=== PATIENT | female | born 1995 | race African-American/Black ===

== ENCOUNTER 2022-03-15 10:25 | Emergency (ER) | payer MEDICAID, OTHER, SELFPAY ==
[~2022-03-15] VITALS: Ht 172.7 cm; Wt 90.9 kg
[2022-03-15 11:17] LABS: BASO % 0.3 % (0.0-1.0); EOS # 0.1 10^3/uL (0.0-0.5); EOS % 1.5 % (0.0-3.0); HEMATOCRIT 33.5 % (36.0-47.0); HEMOGLOBIN 11.4 g/dl (12.0-15.5); LYMPH % 21.7 % (24.0-44.0); MEAN CORPUSCULAR HEMOGLOBIN 29.7 pg (27.0-33.0); MEAN CORPUSCULAR VOLUME 87.2 fl (80.0-96.0); MONO # 0.5 10^3/uL (0.0-0.8); MONO % 5.1 % (2.0-8.0); NEUTROPHILS # 6.4 10^3/uL (1.5-8.5); NEUTROPHILS % 70.5 % (36.0-66.0); PLATELET COUNT, AUTOMATED 268 10^3/uL (150-450); RED BLOOD COUNT 3.84 10^6/uL (4.00-5.40); WHITE BLOOD COUNT 9.1 10^3/uL (4.0-10.0)
[2022-03-15 11:36] LABS: APPEARANCE, URINE CLOUDY (CLEAR); BACTERIA, URINE AUTO 2+ (NEGATIVE); BILIRUBIN, URINE AUTO NEGATIVE (NEGATIVE); BLOOD, URINE BLOOD NEGATIVE (NEGATIVE); COLOR, URINE YELLOW (YELLOW); GLUCOSE, URINE (UA) AUTO 1+ mg/dL (NEGATIVE); KETONE, URINE AUTO NEGATIVE (NEGATIVE); LEUKOCYTE ESTERASE, URINE AUTO 3+ (NEGATIVE); MUCUS, URINE SMALL (NEGATIVE); NITRITE, URINE AUTO NEGATIVE (NEGATIVE); PROTEIN, URINE AUTO NEGATIVE (NEGATIVE); RBC, URINE AUTO 18 /HPF (0-3); SPECIFIC GRAVITY URINE AUTO 1.012 (1.002-1.035); SQUAMOUS EPITHELIAL CELL UR AU 19 /HPF (0-6); TRANSITIONAL EPITHELIAL AUTO <1 /HPF; UROBILINOGEN, URINE AUTO 0.2 mg/dL (0.0-2.0); WBC, URINE AUTO 16 /HPF (0-3)
[2022-03-15 11:56] LABS: ALBUMIN 2.7 GM/DL (3.2-5.2); ALT/SGPT 20 U/L (12-78); BILIRUBIN,DIRECT < 0.1 MG/DL (0.0-0.2); BILIRUBIN,TOTAL 0.3 MG/DL (0.2-1.0); BLOOD UREA NITROGEN 6 MG/DL (7-18); CALCIUM LEVEL 8.6 MG/DL (8.5-10.1); CARBON DIOXIDE LEVEL 24 MEQ/L (21-32); CHLORIDE LEVEL 108 MEQ/L (98-107); CREATININE FOR GFR 0.68 MG/DL (0.55-1.30); GLOMERULAR FILTRATION RATE > 60.0 (>60); GLUCOSE, FASTING 93 MG/DL (70-100); MAGNESIUM LEVEL 1.6 MG/DL (1.8-2.4); POTASSIUM SERUM 3.8 MEQ/L (3.5-5.1); SODIUM LEVEL 139 MEQ/L (136-145); TOTAL PROTEIN 6.7 GM/DL (6.4-8.2); URIC ACID 3.3 MG/DL (2.6-6.0)
[2022-03-15] MEDS ORDERED: diphenhydrAMINE 50MG/ML VIAL (J1200) IV ONE (12:35)
[2022-03-15] MEDS ORDERED: NS 1,000 ML IV ONE (12:35)
[2022-03-15] MEDS ORDERED: ONDANSETRON 4MG 2ML VIAL IV ONE (12:35)
[2022-03-15] MEDS ORDERED: ACETAMINOPHEN 500 MG TAB PO ONE (12:35)
[2022-03-15] MEDS ORDERED: METOCLOPRAMIDE INJ 10MG/2ML VIAL (J2765 PER 1) IV ONE (14:30)
[2022-03-15] MEDS ORDERED: ONDA4TAB6 PO ×2 (14:31→16:49)
[2022-03-15] MEDS ORDERED: CEPH500C PO ×2 (14:31→16:49)
[2022-03-15 16:18] VITALS: BP 109/55
== END 2022-03-15 16:54 | disposition home or self-care (01) ==
LOC: M ED 10:25 → EDBD 10:25 → M ED 16:54
DX: O26.893 Other specified pregnancy related conditions, third trimester (principal); R51.9 Headache, unspecified; N39.0 Urinary tract infection, site not specified; Z3A.28 28 weeks gestation of pregnancy; Z79.899 Other long term (current) drug therapy
CPT/HCPCS: 80048; 80076; 81001; 83735; 84550; 85025; 85384; 87088; 96361; 96374; 96375; 99284; J1200; J2405; J2765

== ENCOUNTER → 2022-04-14 | Outpatient (CLI) | payer MEDICAID, OTHER ==
[~2022-04-14] MED LIST: CEPH500C PO; ONDA4TAB6 PO
[2022-04-14 15:43] LABS: HEMATOCRIT 33.3 % (36.0-47.0); HEMOGLOBIN 11.3 g/dl (12.0-15.5); MEAN CORPUSCULAR HEMOGLOBIN 29.8 pg (27.0-33.0); MEAN CORPUSCULAR HGB CONC 33.9 g/dl (32.0-36.5); MEAN CORPUSCULAR VOLUME 87.9 fl (80.0-96.0); PLATELET COUNT, AUTOMATED 243 10^3/uL (150-450); RED BLOOD COUNT 3.79 10^6/uL (4.00-5.40); WHITE BLOOD COUNT 7.1 10^3/uL (4.0-10.0)
[2022-04-14 17:15] LABS: GC DNA AMPLIFICATION NEGATIVE (NEGATIVE)
== END ==
LOC: M PLALAB 12:44
PROVIDERS: ATTEND Obstetrics & Gynecology
DX: Z34.93 Encounter for supervision of normal pregnancy, unspecified, third trimester (principal); Z3A.29 29 weeks gestation of pregnancy

== ENCOUNTER → 2022-04-22 | Outpatient (CLI) | payer OTHER | LOC: M WHC 12:39 | PROVIDERS: ATTEND Advanced Practice Midwife | DX: Z34.03 Encounter for supervision of normal first pregnancy, third trimester (principal); Z3A.33 33 weeks gestation of pregnancy ==

== ENCOUNTER → 2022-05-04 | Outpatient (REF) | payer OTHER | LOC: M SFHCWAGY 17:07 | PROVIDERS: ATTEND Advanced Practice Midwife | DX: Z34.03 Encounter for supervision of normal first pregnancy, third trimester (principal) ==

== ENCOUNTER → 2022-06-16 | Outpatient (REF) | payer OTHER | LOC: M PLALAB 07:59 | PROVIDERS: ATTEND Advanced Practice Midwife | DX: Z36.85 Encounter for antenatal screening for Streptococcus B (principal) ==

== ENCOUNTER 2022-06-24 08:19 | Inpatient (IN) | payer OTHER ==
[~2022-06-24] VITALS: Ht 172.7 cm; Wt 97.0 kg
[2022-06-24] VITALS (33 sets, daily range): BP systolic 97–142; BP diastolic 52–83
[2022-06-24] MEDS ORDERED: PREN1CHW6 PO (08:36)
[2022-06-24] MEDS ORDERED: PEPC1TAB5 PO (08:37)
[2022-06-24] MEDS ORDERED: HOME MED LIST COMPLETE! XX SCH (08:45)
[2022-06-24] MEDS ORDERED: IBUP-1022 PO (08:54)
[2022-06-24 09:40] LABS: HEMATOCRIT 34.2 % (36.0-47.0); HEMOGLOBIN 11.5 g/dl (12.0-15.5); MEAN CORPUSCULAR HGB CONC 33.6 g/dl (32.0-36.5); MEAN CORPUSCULAR VOLUME 86.1 fl (80.0-96.0); PLATELET COUNT, AUTOMATED 204 10^3/uL (150-450); RED BLOOD COUNT 3.97 10^6/uL (4.00-5.40); WHITE BLOOD COUNT 6.7 10^3/uL (4.0-10.0)
[2022-06-24] MEDS: miSOPROStol 50MCG 1/2 TABLET SL SCH ×2 (09:45→15:00)
[2022-06-24] MEDS ORDERED: BUTORPHANOL 2 MG/ML INJ (J0595) IV ONE (11:55)
[2022-06-24] MEDS ORDERED: PROMETHAZINE 25MG/ML 1ML VIAL IV ONE (11:55)
[2022-06-24] MEDS ORDERED: ONDANSETRON 4MG 2ML VIAL IV PRN ×2 (19:10→20:30)
[2022-06-24] MEDS ORDERED: OXYTOCIN DRIP 30 UNITS in IV 1 EA IV SCH (19:30)
[2022-06-24] MEDS ORDERED: LR 1,000 ML IV SCH (19:30)
[2022-06-24] MEDS ORDERED: EPIDURAL/PCA KEYS XX PRN (20:30)
[2022-06-24] MEDS ORDERED: ePHEDrine SULFATE 25 MG/5 ML(5MG/ML) SYRINGE IVP PRN (20:30)
[2022-06-24] MEDS ORDERED: NALOXONE INJ 0.4MG/1ML VIAL (J2310 PER 1MG) IV PRN (20:30)
[2022-06-24] MEDS ORDERED: diphenhydrAMINE 50MG/ML VIAL (J1200) IV PRN (20:30)
[2022-06-24] MEDS ORDERED: FENTANYL/ROPIVACAINE/NACL BAG 100 ML EPIDURAL SCH (20:30)
[2022-06-24] MEDS ORDERED: LR 500 ML IV PRN (20:30)
[2022-06-25] VITALS (11 sets, daily range): BP systolic 107–143; BP diastolic 56–74
[2022-06-25] MEDS ORDERED: LIDOCAINE 1% MDV 20ML VIAL IM STA (02:07)
[2022-06-25] MEDS ORDERED: ACETAMINOPHEN 500 MG TAB PO PRN (02:25)
[2022-06-25] MEDS ORDERED: IBUPROFEN 600MG TAB PO PRN (02:25)
[2022-06-25] MEDS ORDERED: LIDOCAINE 1% MDV 20ML VIAL INFIL ONE (02:25)
[2022-06-25] MEDS ORDERED: DIBUCAINE 1% OINTMENT 30GM TOP PRN (02:25)
[2022-06-25] MEDS ORDERED: METHYLERGONOVINE MALEATE 0.2 MG TAB PO PRN (02:25)
[2022-06-25] MEDS ORDERED: IBUPROFEN 800 MG TAB PO PRN (02:25)
[2022-06-25] MEDS ORDERED: RHOGAM 300 MCG (1500 IU) INJ (J2790) IM SCH (02:25)
[2022-06-25] MEDS ORDERED: OXYTOCIN DRIP 30 UNITS in IV 1 EA IV ONE (02:25)
[2022-06-25] MEDS ORDERED: DOCUSATE SODIUM 100MG CAPSULE PO PRN (02:25)
[2022-06-25] MEDS ORDERED: ACETAMINOPHEN TAB 650MG DOSE (2X325MG) PO PRN (02:25)
[2022-06-25] MEDS: PRENATAL VITAMINS CHEWABLE TABLET PO SCH (09:04)
[2022-06-25] MEDS ORDERED: SLF 3 ML SYR IV PRN (09:45)
[2022-06-25] MEDS: SLF 3 ML SYR IV SCH ×2 (15:03→22:00)
[2022-06-26 06:00] VITALS: BP 116/64
[2022-06-26] MEDS: SLF 3 ML SYR IV SCH ×3 (06:00→20:57)
[2022-06-26] MEDS: PRENATAL VITAMINS CHEWABLE TABLET PO SCH (09:56)
[2022-06-26 18:00] VITALS: BP 112/65
[2022-06-27] MEDS: SLF 3 ML SYR IV SCH (05:43)
[2022-06-27 05:44] VITALS: BP 122/61
[2022-06-27] MEDS: PRENATAL VITAMINS CHEWABLE TABLET PO SCH (08:49)
[2022-06-27] MEDS ORDERED: MEASLES,MUMPS,RUBELLA VACCINE INJ (MMR-II) (90707) SC.IMMUN ONE (09:00)
== END 2022-06-27 13:05 | disposition home or self-care (01) | DRG 560 ==
LOC: M LDI 08:19 → M OBS 06-25 04:22
PROVIDERS: ADMIT Specialist; ATTEND Specialist
PROC: 3E033VJ Introduction of Other Hormone into Peripheral Vein, Percutaneous Approach (ICD-10-PCS; 2022-06-24)
PROC: 3E0DXGC Introduction of Other Therapeutic Substance into Mouth and Pharynx, External Approach (ICD-10-PCS; 2022-06-24)
PROC: 10E0XZZ Delivery of Products of Conception, External Approach (ICD-10-PCS; principal; 2022-06-25)
PROC: 0HQ9XZZ Repair Perineum Skin, External Approach (ICD-10-PCS; 2022-06-25)
DX: O48.1 Prolonged pregnancy (principal); O70.0 First degree perineal laceration during delivery; Z37.0 Single live birth; Z3A.42 42 weeks gestation of pregnancy

== ENCOUNTER 2022-10-19 20:06 | Emergency (ER) | payer OTHER ==
[~2022-10-19] VITALS: Ht 172.7 cm; Wt 77.1 kg
[~2022-10-19 20:06] MED LIST changes: +IBUP-1022 PO; +PEPC1TAB5 PO; +PREN1CHW6 PO
[2022-10-19 20:07] VITALS: BP 120/70
== END 2022-10-20 01:09 | disposition left against medical advice (07) ==
LOC: M ED 20:06
DX: Z53.21 Procedure and treatment not carried out due to patient leaving prior to being seen by health care provider (principal)

== ENCOUNTER → 2023-09-28 | Outpatient (REF) | payer OTHER | LOC: M SFHCWAGY 10:00 | PROVIDERS: ATTEND Nurse Practitioner Family | DX: Z12.4 Encounter for screening for malignant neoplasm of cervix (principal) ==

== ENCOUNTER 2023-12-27 13:45 | Emergency (ER) | payer OTHER ==
[~2023-12-27] VITALS: Ht 172.7 cm; Wt 79.8 kg
[2023-12-27 13:45] VITALS: BP 132/87; O2SAT 100
[2023-12-27] MEDS ORDERED: PHEN37.58 (14:10)
[2023-12-27] MEDS: cefTRIAXone SOD 1 GM in D5W MINI-BAG PLUS 50 ML IV ONE (14:58)
[2023-12-27] MEDS: ONDANSETRON 4MG 2ML VIAL IV ONE (14:59)
[2023-12-27] MEDS: NS 2,390 ML in IV 1 EA IV ONE (15:00)
[2023-12-27 15:04] LABS: HEMATOCRIT 39.1 % (36.0-47.0); HEMOGLOBIN 13.6 g/dl (12.0-15.5); MEAN CORPUSCULAR HEMOGLOBIN 30.1 pg (27.0-33.0); MEAN CORPUSCULAR HGB CONC 34.8 g/dl (32.0-36.5); MEAN CORPUSCULAR VOLUME 86.5 fl (80.0-96.0); PLATELET COUNT, AUTOMATED 215 10^3/uL (150-450); RED BLOOD COUNT 4.52 10^6/uL (4.00-5.40); WHITE BLOOD COUNT 18.2 10^3/uL (4.0-10.0)
[2023-12-27 15:37] LABS: RSV AMPLIFICATION NEGATIVE (NEGATIVE)
[2023-12-27 15:39] LABS: BASO # 0.1 10^3/uL (0.0-0.2); BASO % 0.3 % (0.0-1.0); EOS % 0.1 % (0.0-3.0); LYMPH # 1.1 10^3/uL (1.5-5.0); LYMPH % 6.2 % (24.0-44.0); MONO # 2.4 10^3/uL (0.0-0.8); MONO % 13.5 % (2.0-8.0); NEUTROPHILS # 14.2 10^3/uL (1.5-8.5); NEUTROPHILS % 79.2 % (36.0-66.0)
[2023-12-27] MEDS ORDERED: ISOVUE-370 76% 100ML VIAL As Ordered ONE (15:42)
[2023-12-27 15:55] LABS: BLOOD UREA NITROGEN 7 MG/DL (9-23); CALCIUM LEVEL 8.5 MG/DL (8.5-10.1); CARBON DIOXIDE LEVEL 26 MMOL/L (20-31); CHLORIDE LEVEL 98 MMOL/L (98-107); CK-MB VALUE MASS < 1.0 NG/ML (<3.6); CPK CREATINE PHOSPHOKINASE 71 U/L (34-145); CREATININE FOR GFR 0.92 MG/DL (0.55-1.30); GLOMERULAR FILTRATION RATE > 60.0 (>60); GLUCOSE, FASTING 97 MG/DL (60-100); POTASSIUM SERUM 4.4 MMOL/L (3.5-5.1); SODIUM LEVEL 134 MMOL/L (136-145)
[2023-12-27] MEDS: ACETAMINOPHEN 325 MG TAB PO ONE (15:59)
[2023-12-27 16:55] VITALS: TEMP 99.8
[2023-12-27] MEDS: BACTRIM 160MG/800MG DS TAB PO ONE (17:15)
[2023-12-27] MEDS ORDERED: BACT800T5 PO (17:17)
== END 2023-12-27 17:47 | disposition home or self-care (01) ==
LOC: M ED 13:45
DX: N10 Acute pyelonephritis (principal); R00.0 Tachycardia, unspecified; Z79.2 Long term (current) use of antibiotics; Z79.899 Other long term (current) drug therapy
CPT/HCPCS: 74177; 80047; 80048; 81001; 82550; 82553; 83605; 84484; 84702; 85027; 87040; 87088; 87186; 87631; 93005; 96365; 96366; 96375; 99284; J0696; J2405; Q9967

== ENCOUNTER 2023-12-28 22:29 | Emergency (ER) | payer OTHER ==
[~2023-12-28] VITALS: Ht 172.7 cm; Wt 79.9 kg
[2023-12-28 22:29] VITALS: TEMP 100.8
[~2023-12-28 22:29] MED LIST changes: +BACT800T5 PO; +PHEN37.58
[2023-12-29] MEDS: ONDANSETRON 4MG 2ML VIAL IV ONE (01:19)
[2023-12-29] MEDS: NS 1,000 ML IV ONE (01:19)
[2023-12-29 01:36] LABS: BASO # 0.1 10^3/uL (0.0-0.2); BASO % 0.4 % (0.0-1.0); EOS # 0.1 10^3/uL (0.0-0.5); EOS % 0.9 % (0.0-3.0); HEMATOCRIT 36.5 % (36.0-47.0); HEMOGLOBIN 12.8 g/dl (12.0-15.5); LYMPH # 1.5 10^3/uL (1.5-5.0); LYMPH % 11.6 % (24.0-44.0); MEAN CORPUSCULAR HGB CONC 35.1 g/dl (32.0-36.5); MEAN CORPUSCULAR VOLUME 85.5 fl (80.0-96.0); MONO # 1.5 10^3/uL (0.0-0.8); MONO % 11.6 % (2.0-8.0); NEUTROPHILS # 9.9 10^3/uL (1.5-8.5); PLATELET COUNT, AUTOMATED 247 10^3/uL (150-450); RED BLOOD COUNT 4.27 10^6/uL (4.00-5.40); WHITE BLOOD COUNT 13.2 10^3/uL (4.0-10.0)
[2023-12-29] MEDS ORDERED: CEPH500T PO (03:03)
[2023-12-29] MEDS ORDERED: ONDA4TAB6 PO (03:03)
[2023-12-29 03:15] VITALS: BP 130/76; O2SAT 98
== END 2023-12-29 03:53 | disposition home or self-care (01) ==
LOC: M ED 22:29
DX: R51.9 Headache, unspecified (principal); T37.0X5A Adverse effect of sulfonamides, initial encounter; N10 Acute pyelonephritis; Z79.899 Other long term (current) drug therapy; Z79.2 Long term (current) use of antibiotics
CPT/HCPCS: 85025; 96361; 96374; 99285; J2405